=== PATIENT | male | born 1940 | race Caucasian/White ===

== ENCOUNTER 2020-07-16 05:01 | Day surgery (SDC) | payer MEDICARE, BC ==
[2020-07-09 12:36] LABS: BASOPHILS # (AUTO) 0.1 X10'3 (0-0.2); EOSINOPHILS # (AUTO) 0.3 X10'3 (0-0.9); EOSINOPHILS % (AUTO) 4.3 % (0-6); LYMPHOCYTES # (AUTO) 1.9 X10'3 (1.1-4.8); LYMPHOCYTES % (AUTO) 29.5 % (21-51); MEAN CORPUSCULAR HEMOGLOBIN 32.2 PG (27.0-31.0); MEAN CORPUSCULAR HGB CONC 33.7 g/dL (33.0-36.5); MEAN CORPUSCULAR VOLUME 95.7 FL (78-98); MONOCYTES # (AUTO) 0.8 X10'3 (0-0.9); MONOCYTES % (AUTO) 11.7 % (2-12); NEUTROPHILS # (AUTO) 3.4 X10'3 (1.8-7.7); NEUTROPHILS % (AUTO) 52.5 % (42-75); PRE OP HEMATOCRIT 38.4 % (42.0-52.0); PRE OP HEMOGLOBIN 12.9 g/dL (14.0-17.9); PRE OP PLATELET COUNT 216 X10'3 (140-440); RED BLOOD COUNT 4.02 X10'6 (4.70-6.10)
[2020-07-09 12:43] LABS: PRE OP PROTIME 10.4 SECONDS (9.0-12.0)
[2020-07-09 12:45] LABS: ALBUMIN 4.1 G/DL (3.4-5.0); ALBUMIN/GLOBULIN RATIO 1.4 (1.1-1.5); ALKALINE PHOSPHATASE 63 IU/L (46-116); BLOOD UREA NITROGEN 13 MG/DL (7-18); BUN/CREATININE RATIO 12.7 (5.4-32.0); CALCIUM 9.1 MG/DL (8.5-10.1); CHLORIDE 102 MMOL/L (99-107); CREATININE 1.02 MG/DL (0.60-1.10); PRE OP ALT 23 U/L (30-65); PRE OP ANION GAP 7 (8-16); PRE OP AST 20 U/L (10-37); PRE OP BILIRUB, TOTAL 0.6 MG/DL (0.0-1.0); PRE OP GLUCOSE 91 MG/DL (70-104); PRE OP POTASSIUM 4.1 MMOL/L (3.4-5.1); PRE OP SODIUM 137 MMOL/L (135-145); TOTAL CARBON DIOXIDE 28.5 MMOL/L (24-32); TOTAL PROTEIN 7.1 G/DL (6.4-8.2); eGFR 71 ML/MIN
[~2020-07-16] VITALS: Ht 175.3 cm; Wt 92.0 kg
[2020-07-16] VITALS (19 sets, daily range): BP systolic 99–147; BP diastolic 54–102
[~2020-07-16 05:01] MED LIST: AMLO5TAB16 PO; AZO1OS EACHEYE; LABE100T5 PO; LISI40TA13 PO; NETA2.5D EACHEYE; XAL0.005OS EACHEYE
[2020-07-16] MEDS ORDERED: oxyCODONE SR 10mg (sust. release) tab -2 tabs (20mg) PO ONE (05:30)
[2020-07-16] MEDS ORDERED: metoclopramide 5 mg/ml inj IV ONE (05:30)
[2020-07-16] MEDS ORDERED: vancomycin 1,500 MG in NS 300ml IV soln IV ONE (05:30)
[2020-07-16] MEDS ORDERED: DOCUMENT DATE & TIME OF BETA-BLOCKER PO ONE (05:30)
[2020-07-16] MEDS ORDERED: tranexamic acid 1gm/0.7% sal. 100 ML IV ONE (05:30)
[2020-07-16] MEDS ORDERED: gabapentin 300mg capsule PO ONE (05:30)
[2020-07-16] MEDS ORDERED: celeCOXIB 100mg capsule PO ONE (05:30)
[2020-07-16] MEDS ORDERED: acetaminophen 325mg tablet PO ONE (05:30)
[2020-07-16] MEDS ORDERED: Cefazolin 2GM/100ML NS IVPB 100 ML IV ONE (05:30)
[2020-07-16] MEDS ORDERED: famotidine 20mg tablet PO ONE (05:30)
[2020-07-16] MEDS ORDERED: LIDOcaine 1% (10mg/ml) 2ml vial ONE (06:01)
[2020-07-16] MEDS: ringers solution, lacted 1,000 ML IV SCH ×4 (06:21→10:46)
[2020-07-16] MEDS ORDERED: vancomycin 1,000mg inj ONE (06:42)
[2020-07-16] MEDS ORDERED: ketorolac trometh. 30mg/ml inj. ONE (06:42)
[2020-07-16] MEDS ORDERED: ROPIVAcaine inj 250 MG, CloNIDine/PF inj 80 MCG, epiNEPHrine inj 0.5 MG in normal salin... IV ONE (06:45)
[2020-07-16] MEDS ORDERED: diphenhydrAMINE 25mg capsule PO PRN ×2 (06:50)
[2020-07-16] MEDS ORDERED: HYDROcodone/acetaminophen 10/325mg tab PO PRN (06:50)
[2020-07-16] MEDS ORDERED: magnesium hydroxide 30ml (MOM) UD suspension PO PRN (06:50)
[2020-07-16] MEDS ORDERED: HYDROmorphone 1 mg/ml syringe IV PRN (06:50)
[2020-07-16] MEDS ORDERED: acetaminophen 325mg tablet PO PRN (06:50)
[2020-07-16] MEDS ORDERED: HYDROmorphone inj. 0.5 MG/0.5 ML DISP.SYRIN IV PRN (06:50)
[2020-07-16] MEDS ORDERED: ondansetron/PF 4mg/2ml inj IV PRN ×2 (06:50→08:50)
[2020-07-16] MEDS ORDERED: bisacodyl 10mg suppository rectal RC PRN (06:50)
[2020-07-16] MEDS ORDERED: midazolam 1 mg/ML 2ml injection ONE (07:05)
[2020-07-16] MEDS ORDERED: ePHEDrine 50MG/ML INJ. ONE (07:59)
[2020-07-16] MEDS ORDERED: propofol inj 20 ML IV ONE ×2 (07:59)
[2020-07-16] MEDS: labetalol 100mg tablet PO SCH ×2 (08:00→20:42)
[2020-07-16] MEDS: amLODIPine 5mg tablet PO SCH (08:00)
[2020-07-16] MEDS: gabapentin 300mg capsule PO SCH ×3 (08:00→20:42)
[2020-07-16] MEDS: lisinopril 20mg tablet PO SCH (08:00)
[2020-07-16] MEDS: aspirin 325mg tablet PO SCH (08:30)
[2020-07-16] MEDS ORDERED: labetalol 20mg/4ml (5mg/ml) syringe IV PRN (08:50)
[2020-07-16] MEDS ORDERED: meperidine/PF 25mg/ml syringe IV PRN ×3 (08:50)
[2020-07-16] MEDS ORDERED: morphine 4 MG/ML inj SYRINge IV PRN (08:50)
[2020-07-16] MEDS ORDERED: proCHLORperazine 10 MG/2 ml inj IV PRN (08:50)
[2020-07-16] MEDS ORDERED: morphine 2 MG/ML inj. syringe IV PRN (08:50)
[2020-07-16] MEDS ORDERED: acetaminophen 1,000mg/100ml IV 100 ML IV PRN (08:50)
[2020-07-16] MEDS ORDERED: hydrALAZINE 20mg/ml inj. IV PRN (08:50)
--- NOTE | 2020-07-16 08:50 | NUR ---
ADMITTED TO PACU FROM OR ACCOMPANIED BY ANESTHESIA. INTIAL PHYSICAL ASSESSMENT DONE AND RECORDED. REPORT RECEIVED FROM ANESTHESIA.
--- NOTE | 2020-07-16 09:47 | NUR ---
Patient in room . I have received report from Ignacia COLLINS and had the opportunity to ask questions and assume patient care.
--- NOTE | 2020-07-16 09:50 | NUR ---
PACU DISCHARGE CRITERIA MET, REPORT GIVEN TO FLOOR. DENIES PAIN OR DISCOMFORT, TRANSFERRED TO ROOM IN STABLE GOOD CONDITION.
--- NOTE | 2020-07-16 10:09 | NUR ---
Recieved patient from recovery room via the bed, belongings sent with patient and placed into closet. Patient is alert and oriented on arrival. Not complaining of pain in the right extremity. He is unable to wiggle his toes at this time however has sensation in his knee and thigh area and increasing in the foot. Extremity is warm pink and dry, cap refill <2 seconds, strong pedal pulses, right hip dressing with kaylie dressing functioning appropriately and no signs of drainage.
[2020-07-16] MEDS: HYDROcodone/acetaminophen 10/325mg tab PO PRN ×2 (12:15→20:44)
[2020-07-16] MEDS ORDERED: tranexamic acid inj. 900 MG in normal saline 100ml IV soln 100 ML IV ONE (14:00)
[2020-07-16] MEDS: potassium cl 20mEq in 1/2 NS 1,000 ML IV SCH ×3 (14:48→23:44)
[2020-07-16] MEDS: cefazolin/dext.iso 2gm/100ml 100 ML IV SCH ×2 (16:12→23:44)
--- NOTE | 2020-07-16 18:09 | NUR ---
Problems reprioritized. Patient report given, questions answered & plan of care reviewed with Fatou COLLINS.
[2020-07-16] MEDS: dorzolamide 2% ophthalmic drops 10ml EACHEYE SCH (20:42)
[2020-07-16] MEDS ORDERED: sennosides 8.6mg tablet PO SCH (21:00)
[2020-07-16] MEDS ORDERED: NETARSUDIL MESYLATE EYE EACHEYE SCH (21:00)
[2020-07-16] MEDS ORDERED: latanoprost 0.005% 2.5ml ophthalmic drops EACHEYE SCH (21:00)
[2020-07-17 02:00] VITALS: BP 95/60
[2020-07-17] MEDS: HYDROcodone/acetaminophen 10/325mg tab PO PRN (05:25)
[2020-07-17 06:00] LABS: BASOPHILS % (AUTO) 0.6 % (0-1); EOSINOPHILS # (AUTO) 0.2 X10'3 (0-0.9); EOSINOPHILS % (AUTO) 3.9 % (0-6); HEMATOCRIT 30.6 % (42.0-52.0); HEMOGLOBIN 10.4 g/dl (14.0-17.9); LYMPHOCYTES # (AUTO) 1.7 X10'3 (1.1-4.8); LYMPHOCYTES % (AUTO) 27.1 % (21-51); MEAN CORPUSCULAR HEMOGLOBIN 32.6 PG (27.0-31.0); MEAN CORPUSCULAR HGB CONC 33.9 g/dL (33.0-36.5); MEAN CORPUSCULAR VOLUME 96.2 FL (78-98); MEAN PLATELET VOLUME 7.3 FL (7.4-10.4); MONOCYTES # (AUTO) 0.8 X10'3 (0-0.9); MONOCYTES % (AUTO) 13.2 % (2-12); NEUTROPHILS # (AUTO) 3.5 X10'3 (1.8-7.7); NEUTROPHILS % (AUTO) 55.2 % (42-75); PLATELET COUNT 168 X10'3 (140-440); RED BLOOD COUNT 3.18 X10'6 (4.70-6.10); RED CELL DISTRIBUTION WIDTH 12.4 % (11.5-14.5); WHITE BLOOD COUNT 6.4 X10'3 (4.5-11.0)
[2020-07-17 06:09] LABS: ANION GAP 8 (8-16); CHLORIDE 98 MMOL/L (99-107); POTASSIUM 4.1 MMOL/L (3.5-5.1); SODIUM 132 MMOL/L (135-145)
[2020-07-17] MEDS: potassium cl 20mEq in 1/2 NS 1,000 ML IV SCH ×2 (06:50→14:50)
[2020-07-17 07:39] VITALS: BP 115/71
[2020-07-17] MEDS: amLODIPine 5mg tablet PO SCH (09:04)
[2020-07-17] MEDS: gabapentin 300mg capsule PO SCH ×2 (09:04→14:23)
[2020-07-17] MEDS: aspirin 325mg tablet PO SCH (09:05)
[2020-07-17] MEDS: dorzolamide 2% ophthalmic drops 10ml EACHEYE SCH (09:07)
[2020-07-17] MEDS: labetalol 100mg tablet PO SCH (09:09)
[2020-07-17 10:00] VITALS: BP 127/69
[2020-07-17 11:16] VITALS: BP_SYST 127
[2020-07-17] MEDS: lisinopril 20mg tablet PO SCH (11:16)
--- NOTE | 2020-07-17 12:36 | NUR ---
Joint Replacement Consult: Pt s/p R DC PO 75-100% avg first regular diet meals meeting needs so far. LBM 07/15. No nutrition concerns at this time. To provide initial assessment on above date. Addendum: 07/17/20 at 1236 [address] Amended: Links added.
[2020-07-17] MEDS ORDERED: gabapentin capsule PO (13:50)
[2020-07-17] MEDS ORDERED: CELE100C98 PO (15:15)
[2020-07-17] MEDS ORDERED: ASPI-1 PO (15:15)
--- NOTE | 2020-07-17 16:40 | NUR ---
DISCHARGE NOTE: Reviewed discharge instructions with pt. Good verbal feedback. He has medications at home already and also has appointment with [facility]. Gave contact info for [facility] office. Removed IV, pressure bandage applied, no s/sx bleeding noted, cannula of IV intact. Pt. left with his belongings. His sister picked him up in a private vehicle to discharge home. Instructions given on NIKKI drain and pt. left with coolpaks as well. He had the opportunity to ask as many questions as he wanted and was given written education on post-operative care specific to his surgery. Pt. given restrictions specific to his surgery. He left with immobilizer and states he has a walker at home as well a raised toilet seat. He has worked with PT who has cleared him for discharge home.
[2020-07-17] MEDS ORDERED: celeCOXIB 100mg capsule PO SCH (20:00)
== END 2020-07-17 16:40 | disposition home or self-care (01) ==
LOC: PAS 05:01 → ORTHO 4S 10:09 → PAS 07-17 16:40
PROVIDERS: ATTEND Orthopaedic Surgery
DX: M16.11 Unilateral primary osteoarthritis, right hip (principal); I10 Essential (primary) hypertension; H40.9 Unspecified glaucoma; Z79.899 Other long term (current) drug therapy; Z79.01 Long term (current) use of anticoagulants; Z87.891 Personal history of nicotine dependence; Z79.82 Long term (current) use of aspirin; Z98.890 Other specified postprocedural states; Z88.8 Allergy status to other drugs, medicaments and biological substances
CPT/HCPCS: 27130; 36415; 72170; 80051; 80053; 82948; 85025; 85610; 85730; 86885; 86900; 86901; 87081; 97110; 97116; 97161; 97535; C1776; J0690; J1885; J2001; J2250; J2704; J2765; J3370; J7040; J7120; A7000; G0378; J3480